=== PATIENT | male | born 1980 | race Caucasian/White ===

== ENCOUNTER 2021-04-01 00:34 | Emergency (ER) | payer MEDICAID ==
[~2021-04-01] VITALS: Ht 182.9 cm; Wt 78.6 kg
[2021-04-01 00:35] VITALS: BP 144/92
== END 2021-04-01 01:31 | disposition home or self-care (01) ==
LOC: ED 01:00
DX: M54.12 Radiculopathy, cervical region (principal); M54.2 Cervicalgia; M25.511 Pain in right shoulder
CPT/HCPCS: 99283